=== PATIENT | female | born 1955 | race Caucasian/White ===

== ENCOUNTER 2017-02-06 09:12 | Inpatient (IN) | payer MEDICAID, MEDICARE ==
[2017-02-06 09:36] VITALS: BMI 35.5
[2017-02-06 10:15] LABS: ADD MANUAL DIFF? NO
[2017-02-06 10:22] LABS: BASO # 0.02 K/mm3 (0.0-2.0); BASO % 0.1 % (0.0-3.0); EOS # 0.1 (0.0-0.7); EOS % 0.6 % (1.5-5.0); GRAN % 61.8 % (50.0-68.0); HEMATOCRIT 36.7 % (36.0-48.0); LYMPH # 3.5 (1.2-3.4); LYMPH % 25.3 % (22.0-35.0); MEAN CELL VOLUME 72.1 fL (80.0-105.0); MEAN CORPUSCULAR HEMOGLOBIN 24.6 pg (25.0-35.0); MEAN CORPUSCULAR HGB CONC 34.1 g/dl (31.0-37.0); MONO # 1.7 (0.1-0.6); MONO % 12.2 % (1.0-6.0); PLATELET COUNT 196 10^3/uL (120.0-450.0); RED CELL DISTRIBUTION WIDTH 15.2 % (11.5-14.5); WHITE BLOOD COUNT 13.9 10^3/ul (4.5-11.0)
--- NOTE | 2017-02-06 10:26 | ED PDOC ---
Arrival/HPI - General Chief Complaint: Psychiatric Evaluation Time Seen by Provider: 02/06/17 09:24 Historian: Patient - History of Present Illness Narrative History of Present Illness (Text): 02/06/17 10:42 61 year old female whose past medical history includes schizophrenia presents to the emergency department after aggressive behavior at [facility]. Patient calm and cooperative on arrival. Denies suicidal ideation or homicidal ideation. Denies auditory hallucinations. Time/Duration: Prior to Arrival Symptom Onset: Sudden Symptom Course: Improving Associated Symptoms (Text): None Past Medical History - Provider Review Nursing Documentation Reviewed: Yes - Cardiac Hx Cardiac Disorders: Yes Hx Hypertension: Yes - Pulmonary Hx Respiratory Disorders: No - Neurological Hx Neurological Disorder: No - HEENT Hx HEENT Disorder: No - Renal Hx Renal Disorder: No - Endocrine/Metabolic Hx Endocrine Disorders: Yes Hx Hypothyroidism: Yes - Hematological/Oncological Hx Blood Disorders: No - Integumentary Hx Dermatological Disorder: No - Musculoskeletal/Rheumatological Hx Musculoskeletal Disorders: No - Gastrointestinal Hx Gastrointestinal Disorders: Yes Hx Gastroesophageal Reflux: Yes - Genitourinary/Gynecological Hx Genitourinary Disorders: No - Psychiatric Hx Psychophysiologic Disorder: Yes Hx Anxiety: Yes Hx Schizophrenia: Yes Hx Substance Use: No (denies current) - Surgical History Hx Section: Yes Family/Social History - Physician Review Nursing Documentation Reviewed: Yes Family/Social History: Unknown Family HX Smoking Status: Current Some Days Smoker Hx Alcohol Use: No (denies current) Hx Substance Use: No (denies current) Allergies/Home Meds Allergies/Adverse Reactions: Allergies No Known Allergies Allergy (Verified 02/06/17 13:55) Home Medications: Home Meds Medication Instructions Recorded Confirmed Divalproex [Depakote DR(*BID*)] 3 tab PO HS 02/06/17 02/06/17 Levothyroxine [Synthroid] 75 mcg PO DAILY 02/06/17 02/06/17 Sennosides [Senna Lax] 1 tab PO BID 02/06/17 02/06/17 amLODIPine [Norvasc] 10 mg PO DAILY 02/06/17 02/06/17 Review of Systems - Physician Review All systems were reviewed & negative as marked: Yes - Review of Systems Constitutional: Normal Respiratory: absent: SOB Gastrointestinal: absent: Abdominal Pain Genitourinary Female: Normal. absent: Dysuria, Frequency, Hematuria Neurological: absent: Headache Psychiatric: Other (No auditory hallucinations). absent: Suicidal Ideation Physical Exam Vital Signs Reviewed: Yes Vital Signs Temp Pulse Resp BP Pulse Ox 02/06/17 12:23 97 H 15 146/72 97 02/06/17 09:22 98.2 F 88 15 138/81 Temperature: Afebrile Blood Pressure: Normal Pulse: Regular Respiratory Rate: Normal Appearance: Positive for: Well-Appearing, Non-Toxic, Comfortable Pain Distress: None Mental Status: Positive for: Alert and Oriented X 3 - Systems Exam Head: Present: Atraumatic, Normocephalic Pupils: Present: PERRL Extroacular Muscles: Present: EOMI Conjunctiva: Present: Normal Mouth: Present: Moist Mucous Membranes Pharnyx: Present: Normal. No: ERYTHEMA, EXUDATE Neck: Present: Normal Range of Motion Respiratory/Chest: Present: Clear to Auscultation, Good Air Exchange. No: Respiratory Distress, Accessory Muscle Use Cardiovascular: Present: Regular Rate and Rhythm, Normal S1, S2. No: Murmurs Abdomen: Present: Normal Bowel Sounds. No: Tenderness, Distention, Peritoneal Signs Back: Present: Normal Inspection Upper Extremity: Present: Normal Inspection. No: Cyanosis, Edema Lower Extremity: Present: Normal Inspection. No: Edema Neurological: Present: GCS=15, CN II-XII Intact, Speech Normal Skin: Present: Warm, Dry, Normal Color. No: Rashes Psychiatric: Present: Alert, Oriented x 3, Normal Insight, Normal Concentration Medical Decision Making ED Course and Treatment: Impression: 61 year old female whose past medical history includes schizophrenia presents to the emergency department after aggressive behavior at [facility]. Differential Diagnosis included but are not limited to: Aggressive Behavior r/ o Schizophrenia Plan: -- Labs -- Medical clearance -- Reassess and disposition Progress Notes: Chest X-ray Auth Specialist: Ramírez Snyder MD IMPRESSION: No active disease Case discussed with Dr. Forde, states if workup is negative, medically clear for admission. 02/06/17 11:48 Labs reviewed. Urinalysis negative. CXR negative. Patient medically clear for psych admission - Lab Interpretations Lab Results: 02/06/17 10:14 02/06/17 10:14 Lab Results 02/06/17 10:30: Urine Color Yellow, Urine Appearance Sl cloudy, Urine pH 7.5, Ur Specific [place] 1.020, Urine Protein 30 H, Urine Glucose (UA) Negative, Urine Ketones Trace H, Urine Blood Negative, Urine Nitrate Negative, Urine Bilirubin Negative, Urine Urobilinogen 1.0 H, Ur Leukocyte Esterase Small H, Urine RBC 0 - 2, Urine WBC 1 - 3, Ur Epithelial Cells 6 - 8, Urine Bacteria Few , Hyaline Casts 2 - 5 02/06/17 10:14: Alcohol, Quantitative < 10 02/06/17 10:14: Salicylates < 1 L, Acetaminophen < 10.0 L 02/06/17 10:14: Sodium 138, Potassium 4.2, Chloride 103, Carbon Dioxide 27, Anion Gap 12, BUN 14, Creatinine 0.5, Est GFR ( Amer) > 60, Est GFR (Non- Af Amer) > 60, Random Glucose 83, Calcium 10.2, Total Bilirubin 0.4, AST 20, ALT 29, Alkaline Phosphatase 76, Total Creatine Kinase 99, Total Protein 8.1, Albumin 4.1, Globulin 4.0, Albumin/Globulin Ratio 1.0 L 02/06/17 10:14: WBC 13.9 H, RBC 5.09, Hgb 12.5, Hct 36.7, MCV 72.1 L, MCH 24.6 L , MCHC 34.1, RDW 15.2 H, Plt Count 196, MPV 10.0, Gran % 61.8, Lymph % (Auto) 25.3, [place] % (Auto) 12.2 H, Eos % (Auto) 0.6 L, Baso % (Auto) 0.1, Gran # 8.60 H , Lymph # 3.5 H, [place] # 1.7 H, Eos # 0.1, Baso # 0.02 02/06/17 09:38: Urine Opiates Screen Negative, Urine Methadone Screen Negative, Ur Barbiturates Screen Negative, Ur Phencyclidine Scrn Negative, Ur Amphetamines Screen Negative, U Benzodiazepines Scrn Negative, U Oth Cocaine Metabols Negative, U Cannabinoids Screen Negative Interpretation: No clinic. lab abnormalty - RAD Interpretation Radiology Orders: 02/06/17 09:53 CHEST PORTABLE [RAD] Stat Shrimp Peeling Machine Tender: Radiologist - EKG Interpretation EKG Interpretation (Text): EKG shows NSR at 99 BPM with LAFB, otherwise normal. Interpreted by me.. Interpreted by ED Physician: Yes Type: 12 lead EKG - Medication Orders Current Medication Orders: Acetaminophen (Tylenol 325mg Tab) 650 mg PO Q6H PRN PRN Reason: Fever >100.4 F Al Hydrox/Mg Hydrox/Simethicone (Maalox Plus 30 Ml) 30 ml PO DAILY PRN PRN Reason: Indigestion / Heartburn Amlodipine Besylate (Norvasc) 10 mg PO DAILY PHYLICIA Divalproex Sodium (Depakote Er(Once Daily)) 750 mg PO HS PHYLICIA Levothyroxine Sodium (Synthroid) 75 mcg PO ACB PHYLICIA Magnesium Hydroxide (Milk Of Magnesia) 30 ml PO DAILY PRN PRN Reason: Constipation Nicotine (Nicoderm Cq) 1 patch TD DAILY [facility] Last Admin: 02/06/17 15:39 Dose: Not Given Non-Admin Reason: Patient Refused Risperidone (Risperdal Tab) 1 mg PO BID PHYLICIA PRN Reason: Protocol Senna/Docusate Sodium (Senokot S 50 Mg-8.6 Mg) 1 tab PO BID [facility] Last Admin: 02/06/17 16:11 Dose: 1 tab Zaleplon (Sonata) 5 mg PO HS PRN PRN Reason: Insomnia Ziprasidone (Geodon Cap) 20 mg PO Q8H PRN; Protocol PRN Reason: Anxiety Ziprasidone (Geodon Inj) 20 mg IM Q8H PRN; Protocol PRN Reason: Agitation - Scribe Statement The provider has reviewed the documentation as recorded by the Rodger Jones Provider Scribe Attestation: All medical record entries made by the Marinoibfelipe were at my direction and personally dictated by me. I have reviewed the chart and agree that the record accurately reflects my personal performance of the history, physical exam, medical decision making, and the department course for this patient. I have also personally directed, reviewed, and agree with the discharge instructions and disposition. Disposition/Present on Arrival - Present on Arrival Any Indicators Present on Arrival: No History of DVT/PE: No History of Uncontrolled Diabetes: No Urinary Catheter: No History of Decub. Ulcer: No History Surgical Site Infection Following: None - Disposition Have Diagnosis and Disposition been Completed?: Yes Diagnosis: Schizophrenia Disposition: HOSPITALIZED Disposition Time: 13:20 Patient Plan: Admission Condition: FAIR
[2017-02-06 10:30] LABS: ALKALINE PHOSPHATASE 76 U/L (38-133); ALT/SGPT 29 U/L (7-56); AST/SGOT 20 U/L (15-39); BILIRUBIN,TOTAL 0.4 mg/dL (0.2-1.3); BLOOD UREA NITROGEN 14 mg/dL (7-21); CALCIUM 10.2 mg/dL (8.4-10.5); CARBON DIOXIDE 27 mmol/L (21-33); CHLORIDE 103 mmol/L (95-110); GFR AFRICAN-AMERICAN > 60; GLUCOSE,RANDOM 83 mg/dL (70-110); POTASSIUM 4.2 mmol/L (3.6-5.0); SODIUM 138 mmol/L (132-148); TOTAL PROTEIN 8.1 g/dL (5.8-8.3)
--- NOTE | 2017-02-06 10:43 | RAD ---
HISTORY: psych COMPARISON: No prior. FINDINGS: LUNGS: No active pulmonary disease. PLEURA: No significant pleural effusion identified, no pneumothorax apparent. CARDIOVASCULAR: Normal. OSSEOUS STRUCTURES: No significant abnormalities. VISUALIZED UPPER ABDOMEN: Normal. OTHER FINDINGS: None. IMPRESSION: No active disease.
[2017-02-06 11:00] LABS: PH,URINE 7.5 (4.7-8.0); URINE BILIRUBIN NEGATIVE (NEGATIVE); URINE BLOOD NEGATIVE (NEGATIVE); URINE GLUCOSE (UA) NEGATIVE (NEGATIVE); URINE KETONE TRACE mg/dL (NEGATIVE); URINE LEUKOCYTE ESTERASE SMALL Leu/uL (NEGATIVE); URINE PROTEIN 30 mg/dL (<30 mg/dL)
[2017-02-06 11:01] LABS: URINE APPEARANCE SL CLOUDY (CLEAR); URINE COLOR YELLOW (YELLOW)
[2017-02-06 11:12] LABS: URINE RBC 0 - 2 /hpf (0-2)
[2017-02-06 11:13] LABS: URINE BACTERIA FEW (NEG)
[2017-02-06 12:30] VITALS: O2SAT 97
[2017-02-06] MEDS ORDERED: Alum-Mag Hydrox-Simethicone Susp (30 mL) PO PRN (14:03)
[2017-02-06] MEDS ORDERED: Magnesium Hydroxide Susp 30 ml UD PO PRN (14:03)
[2017-02-06] MEDS: Docusate-Senna 50 mg-8.6 mg Tab PO SCH (16:11)
--- NOTE | 2017-02-06 18:25 | CARD ---
APPROVED REPORT EKG Measurement Heart [id number] <Conclusion> Normal sinus rhythm Left anterior fascicular block PRWP NSSTW changes
[2017-02-06] MEDS: Divalproex 250 mg ER (ONCE DAILY formulation) PO SCH (21:51)
[2017-02-07] MEDS: Levothyroxine 75 MCG TAB PO SCH (06:34)
[2017-02-07 08:51] LABS: CHOLESTEROL 205 mg/dL (130-200); GLUCOSE,FASTING 90 mg/dL (65-110)
[2017-02-07] MEDS: Docusate-Senna 50 mg-8.6 mg Tab PO SCH ×2 (09:03→17:29)
[2017-02-07 09:08] LABS: FREE T4 1.12 ng/dL (0.78-2.19)
[2017-02-07 09:22] LABS: THYROID STIMULATING HORMONE 3.01 mIU/mL (0.46-4.68)
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
[2017-02-07] MEDS: Divalproex 250 mg ER (ONCE DAILY formulation) PO SCH (21:20)
[2017-02-08] MEDS: Levothyroxine 75 MCG TAB PO SCH (06:54)
[2017-02-08] MEDS: Docusate-Senna 50 mg-8.6 mg Tab PO SCH ×2 (08:43→17:22)
[2017-02-08 10:30] LABS: HEMATOCRIT 36.7 % (36.0-48.0); MEAN CELL VOLUME 72.7 fL (80.0-105.0); MEAN CORPUSCULAR HEMOGLOBIN 24.2 pg (25.0-35.0); MEAN CORPUSCULAR HGB CONC 33.2 g/dl (31.0-37.0); MEAN PLATELET VOLUME 9.9 fl (7.0-11.0); RED CELL DISTRIBUTION WIDTH 15.3 % (11.5-14.5)
--- NOTE | 2017-02-08 11:51 | CP.PCM.HP ---
History of Present Illness - History of Present Illness History of Present Illness: CC: Patient was transferred from detention for evaluation of disorganized, paranoid and aggressive behavior. HPI: 61 year old female with history of HTN, dyslipidemia, obesity, hypothyroidism and tobacco use who got admitted for evaluation of disorganized, paranoid and aggressive behavior. Patient appears calm at present and denies any chest pain, fever, headache, abdominal pain, constipation, diarrhea or urinary problems. Reports that she has mild cough with scant whitish sputum and runny nose. PMH: HTN, dyslipidemia, obesity, hypothyroidism and tobacco use ALLERGY: NKDA MEDS: Synthroid, depakote and norvasc FAMILY HISTORY: Unknown. SOCIAL HISTORY: Patient lives in [facility]. She is a and has 2 daughters. Smoke 5-6 cig/ day. Does not drink alcohol or use drugs. Present on Admission - Present on Admission Any Indicators Present on Admission: No History of DVT/PE: No History of Uncontrolled Diabetes: No Urinary Catheter: No Decubitus Ulcer Present: No Review of Systems - Constitutional Constitutional: absent: Anorexia, Chills, Daytime Sleepiness, Excessive Sweating , Fatigue, Fever, Frequent Falls, Headache, Increased Appetite, Lethargy, Malaise, Night Sweats, Snoring, Sleep Apnea, Weight Gain, Weight Loss, Weakness - EENT Eyes: absent: Blind Spots, Blurred Vision, Change in Vision, Decreased Night Vision, Diplopia, Discharge, Irritation, Itchy Eyes, Loss of Peripheral Vision, Photophobia, Sees Flashes, Spots in Vision, Tunnel Vision, Other Visual Disturbances Ears: absent: Decreased Hearing, Ear Discharge, Ear Pain, Tinnitus, Abnormal Hearing, Disequilibrium, Dizziness Nose/Mouth/Throat: absent: Epistaxis, Nasal Congestion, Nasal Discharge, Nasal Obstruction, Nasal Trauma, Sinus Pressure, Bleeding Gums, Change in Voice, Dental Pain, Dry Mouth, Lip Swelling, Mouth Lesions, Mouth Pain, Odynophagia, Sore Throat - Breasts Breasts: absent: Change in Shape, Mass, Pain, Nipple Discharge, Nipple Inversion - Cardiovascular Cardiovascular: absent: Acrocyanosis, Chest Pain, Chest Pain at Rest, Chest Pain with Activity, Claudication, Diaphoresis, Dyspnea, Dyspnea on Exertion, Edema, Irregular Heart Rhythm, Pain Radiating to Arm/Neck/Jaw, Leg Edema, Leg Ulcers, Lightheadedness, Orthopnea, Palpitations, Paroxysmal Nocturnal Dyspnea, Pedal Edema, Rapid Heart Rate, Slow Heart Rate, Syncope - Respiratory Respiratory: Cough. absent: Dyspnea, Hemoptysis, Dyspnea on Exertion, Wheezing , Snoring, Stridor, Pain on Inspiration, Chest Congestion, Excessive Mucous Production, Change in Mucous Color, Pain with Coughing - Gastrointestinal Gastrointestinal: absent: Abdominal Pain, Belching, Bloating, Change in Bowel Habits, Change in Stool Character, Constipation, Cramping, Diarrhea, Dyspepsia, Dysphagia, Early Satiety, Excessive Flatus, Heartburn, Hematemesis, Hematochezia , Loose Stools, Nausea, Odynophagia - Genitourinary Genitourinary: absent: Change in Urinary Stream, Difficulty Urinating, Dysuria, Flank Pain, Hematuria, Pyuria, Nocturia, Urinary Frequency, Urinary Hesitance, Urinary Urgency, Voiding Freq/Small Amts, Freq UTI - Reproductive: Female Reproductive:Female: Amenorrhea - Musculoskeletal Musculoskeletal: absent: Abnormal Gait, Arthralgias, Atrophy, Back Pain, Deformity, Joint Swelling, Limited Range of Motion, Muscle Cramps, Muscle Weakness, Myalgias, Neck Pain, Radiating Pain into Limb - Integumentary Integumentary: absent: Alopecia, Bleeding Lesions, Change in Hair, Change in Nails, Change in Pigmentation, Dry Skin, Erythema, Furuncle, Hirsutism, Lesions , New Lesions, Pruritus, Rash, Skin Pain, Skin Ulcer, Striae - Neurological Neurological: absent: Abnormal Gait, Abnormal Hearing, Abnormal Movements, Convulsions, Disequilibrium, Dizziness, Headaches, Lack of Coordination, Sensory Deficit, Syncope, Tingling, Tremor - Psychiatric Psychiatric: absent: Abnormal Sleep Pattern, Anhedonia, Anxiety, Auditory Hallucinations, Change in Libido, Confusion, Depression, Hopelessness, Irritability, Memory Loss - Endocrine Endocrine: absent: Change in Body Appearance, Change in [place], Cold Intolorance , Deepening of Voice, Heat Intolorance, Increase in Ring/Shoe/Hat Size, Palpitations, Polydipsia - Hematologic/Lymphatic Hematologic: absent: Easy Bleeding, Easy Bruising, Lymphadenopathy Past Patient History - Past Social History Smoking Status: Current Some Days Smoker Meds Allergies/Adverse Reactions: Allergies Allergy/AdvReac Type Severity Reaction Status Date / Time No Known Allergies Allergy Verified 02/06/17 13:55 Physical Exam - Constitutional Appears: Well, Non-toxic, No Acute Distress - Head Exam Head Exam: ATRAUMATIC, NORMAL INSPECTION, NORMOCEPHALIC - Eye Exam Eye Exam: EOMI, Normal appearance Pupil Exam: PERRL - ENT Exam ENT Exam: Mucous Membranes Moist, Normal Exam - Neck Exam Neck exam: Positive for: Normal Inspection - Respiratory Exam Respiratory Exam: Clear to Auscultation Bilateral, NORMAL BREATHING PATTERN. absent: Prolonged Expiratory Phase - Cardiovascular Exam Cardiovascular Exam: REGULAR RHYTHM, +S1, +S2 - GI/Abdominal Exam GI & Abdominal Exam: Distended, Normal Bowel Sounds, Soft. absent: Tenderness - Rectal Exam Rectal Exam: Deferred - Extremities Exam Extremities exam: Positive for: full ROM, normal capillary refill, normal inspection. Negative for: pedal edema - Back Exam Back exam: FULL ROM, NORMAL INSPECTION. absent: CVA tenderness (L), CVA tenderness (R), paraspinal tenderness, tenderness, vertebral tenderness - Neurological Exam Neurological exam: Alert, CN II-XII Intact, Normal Gait, Oriented x3, Reflexes Normal - Psychiatric Exam Psychiatric exam: Normal Affect, Normal Mood - Skin Skin Exam: Dry, Intact, Normal Color, Warm Results - Vital Signs Recent Vital Signs: Last Vital Signs Temp 97.7 F 02/08/17 07:40 Pulse 88 02/08/17 07:40 Resp 20 02/08/17 07:40 BP 135/86 02/08/17 08:43 Pulse Ox 97 02/06/17 12:23 - Labs Result Diagrams: 02/08/17 10:23 02/06/17 10:14 Labs: Laboratory Results - last 24 hr 02/07/17 02/07/17 02/07/17 08:30 08:30 08:30 Fasting Glucose 90 Triglycerides 66 Cholesterol 205 H LDL Cholesterol Direct 92 HDL Cholesterol 72 H Free T4 1.12 TSH 3rd Generation 3.01 Valproic Acid 22 L RPR 02/07/17 08:30 Fasting Glucose Triglycerides Cholesterol LDL Cholesterol Direct HDL Cholesterol Free T4 TSH 3rd Generation Valproic Acid RPR Nonreactive Assessment & Plan - Assessment and Plan (Free Text) Plan: 61 year old female with history of HTN, dyslipidemia, obesity, hypothyroidism and tobacco use who got admitted for evaluation of disorganized, paranoid and aggressive behavior. 1-Disorganized, paranoid and aggressive behavior: Manage as per psych. 2-HTN: Stable. Continue norvasc. Heart healthy diet with low salt. 3-Dyslipidemia: stable. Life style modification advised. 4-Leukocytosis: Patient appears non toxic and afebrile. Repeat CBC is normal. 5-Viral URI: Supportive. Tylenol prn. 6-Hypothyroidism: Continue synthroid. TFTs are normal. 7-Tobacco use: Nicotine patch. Counselling provided. 8-Abnormal urinalysis: Patient is asymptomatic. No indication to give antibiotics. Dispo: Upon discharge patient will follow up with Dr Rios as an outpatient.
--- NOTE | 2017-02-08 14:02 | PCM.PYCHPN ---
Psychiatric Progress Note - Psychiatric Progress Note Patient seen today, length of contact: 30 minutes Patient Chief Complaint: "i'm doing well thank you" Problems Identified/Issues Discussed: Suicide/ homicide prevention, past psychiatric h/o, current psychiatric symptoms , medical problems, risk/benefits and alternatives of medications, medications compliance, coping strategies, substance abuse h/o, relapse prevention, importance of follow up with psychiatrist and therapist, discharge plan. Medical Problems: dyslipidemia, obesity, hypothyroidism, URI now Diagnostic Results: 02/08/17 10:23 02/06/17 10:14 Lab Results 02/08/17 10:23: WBC 9.0 D, RBC 5.05, Hgb 12.2, Hct 36.7, MCV 72.7 L, MCH 24.2 L , MCHC 33.2, RDW 15.3 H, Plt Count 185, MPV 9.9 02/07/17 08:30: RPR Nonreactive 02/07/17 08:30: Valproic Acid 22 L 02/07/17 08:30: Fasting Glucose 90, Triglycerides 66, Cholesterol 205 H, LDL Cholesterol Direct 92, HDL Cholesterol 72 H 02/07/17 08:30: Free T4 1.12, TSH 3rd Generation 3.01 02/06/17 10:30: Urine Color Yellow, Urine Appearance Sl cloudy, Urine pH 7.5, Ur Specific [place] 1.020, Urine Protein 30 H, Urine Glucose (UA) Negative, Urine Ketones Trace H, Urine Blood Negative, Urine Nitrate Negative, Urine Bilirubin Negative, Urine Urobilinogen 1.0 H, Ur Leukocyte Esterase Small H, Urine RBC 0 - 2, Urine WBC 1 - 3, Ur Epithelial Cells 6 - 8, Urine Bacteria Few , Hyaline Casts 2 - 5 02/06/17 10:14: Alcohol, Quantitative < 10 02/06/17 10:14: Salicylates < 1 L, Acetaminophen < 10.0 L 02/06/17 10:14: Sodium 138, Potassium 4.2, Chloride 103, Carbon Dioxide 27, Anion Gap 12, BUN 14, Creatinine 0.5, Est GFR ( Amer) > 60, Est GFR (Non- Af Amer) > 60, Random Glucose 83, Calcium 10.2, Total Bilirubin 0.4, AST 20, ALT 29, Alkaline Phosphatase 76, Total Creatine Kinase 99, Total Protein 8.1, Albumin 4.1, Globulin 4.0, Albumin/Globulin Ratio 1.0 L 02/06/17 10:14: WBC 13.9 H, RBC 5.09, Hgb 12.5, Hct 36.7, MCV 72.1 L, MCH 24.6 L , MCHC 34.1, RDW 15.2 H, Plt Count 196, MPV 10.0, Gran % 61.8, Lymph % (Auto) 25.3, [place] % (Auto) 12.2 H, Eos % (Auto) 0.6 L, Baso % (Auto) 0.1, Gran # 8.60 H , Lymph # 3.5 H, [place] # 1.7 H, Eos # 0.1, Baso # 0.02 02/06/17 09:38: Urine Opiates Screen Negative, Urine Methadone Screen Negative, Ur Barbiturates Screen Negative, Ur Phencyclidine Scrn Negative, Ur Amphetamines Screen Negative, U Benzodiazepines Scrn Negative, U Oth Cocaine Metabols Negative, U Cannabinoids Screen Negative Vital Signs Temp Pulse Resp BP Pulse Ox 02/08/17 08:43 135/86 02/08/17 07:40 97.7 F 88 20 135/86 02/07/17 16:23 94 H 138/82 02/07/17 09:02 131/86 02/07/17 07:36 98.0 F 90 20 131/86 02/06/17 14:05 18 02/06/17 13:58 97.6 F 86 18 145/84 02/06/17 12:23 97 H 15 146/72 97 02/06/17 09:22 98.2 F 88 15 138/81 DSM 5 Symptoms Update: shortly patient is 61 years old -[place] female, long debilitating history of mental illness, schizophrenia spectrum disorder, multiple admissions to the psychiatric inpatient unit through her life, patient was transferred from the longterm for evaluation of agitated bizarre, psychotic behavior, patient broke the door, patient needs further evaluation and stabilization, medications titration. Patient was seen at the tv area, patient presented to have acceptable personal hygiene, poor dental hygiene, patient does not have frontal teeth, overall was calm, superficially corporative, with ADLs, childlike demeanor. pt seems having residual psychotic symptoms, pt has some cognitive limitations, pt is not aware why she was admitted to the hospital and does not remember being agitated in the NH. as per staff, pt is socially appropriate, wondering at the unit, needs observation and redirections. pt is compliant with meds and unit rules and regulations. pt seems to be internally preoccupied, poverty of speech and thoughts, concrete thought process, thought blocking. Patient told her medications well, no side effects observed or reported, aims 0 , no EPS. Impression: Residual schizophrenia, acute exacerbation. Medication Change: Yes (Risperdal was increased yesterday) Medical Record Reviewed: Yes Consults ordered or reviewed: medical consultation appreciated, WBC cells elevated most likely due to upper resptory tract infection. Mental Status Examination - Cognitive Function Orientation: Person, Place Memory: Impaired (chronic) Attention: Poor Concentration: Poor Association: Loose Fund of Knowledge: Poor - Mood Mood: Neutral - Affect Affect: Other (inappropriately smiling) - Formal Thought Process Formal Thought Process: Delusions, Paranoia, Loosening of associations, Circumstantial - Suicidal Ideation Suicidal Ideation: No - Homicidal Ideation Homicidal Ideation: No Goal/Treatment Plan - Goal/Treatment Plan Need for Continued Stay: Remain at risks for inpatient hospitalization, Severe depression anxiety, Discharge may exacerbated symptoms, Severe functional impairment Progress Toward Problem(s) and Goals/Treatment Plan: milieu, structure, supportive therapy Divalproex 750 mg at the nighttime for mood stabilization Depakote level was low ,consider to increase Depakote in the future Levothyroxine [Synthroid] 75 mcg PO DAILY will be resumed Sennosides [Senna Lax] 1 tab PO BID resumed amLODIPine [Norvasc] 10 mg PO DAILY resumed Risperdal 1 mg at the morning time and 2 mg at the nighttime for psychotic symptoms and mood stabilization Medical team evaluation 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
[2017-02-08] MEDS: Divalproex 250 mg ER (ONCE DAILY formulation) PO SCH (21:15)
[2017-02-09] MEDS: Levothyroxine 75 MCG TAB PO SCH (06:40)
[2017-02-09] MEDS: Docusate-Senna 50 mg-8.6 mg Tab PO SCH ×2 (08:40→16:06)
--- NOTE | 2017-02-09 12:45 | PCM.PYCHPN ---
Psychiatric Progress Note - Psychiatric Progress Note Patient seen today, length of contact: 30 minutes Patient Chief Complaint: "[facility]" Problems Identified/Issues Discussed: Suicide/ homicide prevention, past psychiatric h/o, current psychiatric symptoms , medical problems, risk/benefits and alternatives of medications, medications compliance, coping strategies, substance abuse h/o, relapse prevention, importance of follow up with psychiatrist and therapist, discharge plan. Medical Problems: dyslipidemia, obesity, hypothyroidism, URI now Diagnostic Results: 02/08/17 10:23 02/06/17 10:14 Lab Results 02/08/17 10:23: WBC 9.0 D, RBC 5.05, Hgb 12.2, Hct 36.7, MCV 72.7 L, MCH 24.2 L , MCHC 33.2, RDW 15.3 H, Plt Count 185, MPV 9.9 02/07/17 08:30: RPR Nonreactive 02/07/17 08:30: Valproic Acid 22 L 02/07/17 08:30: Fasting Glucose 90, Triglycerides 66, Cholesterol 205 H, LDL Cholesterol Direct 92, HDL Cholesterol 72 H 02/07/17 08:30: Free T4 1.12, TSH 3rd Generation 3.01 02/06/17 10:30: Urine Color Yellow, Urine Appearance Sl cloudy, Urine pH 7.5, Ur Specific [place] 1.020, Urine Protein 30 H, Urine Glucose (UA) Negative, Urine Ketones Trace H, Urine Blood Negative, Urine Nitrate Negative, Urine Bilirubin Negative, Urine Urobilinogen 1.0 H, Ur Leukocyte Esterase Small H, Urine RBC 0 - 2, Urine WBC 1 - 3, Ur Epithelial Cells 6 - 8, Urine Bacteria Few , Hyaline Casts 2 - 5 02/06/17 10:14: Alcohol, Quantitative < 10 02/06/17 10:14: Salicylates < 1 L, Acetaminophen < 10.0 L 02/06/17 10:14: Sodium 138, Potassium 4.2, Chloride 103, Carbon Dioxide 27, Anion Gap 12, BUN 14, Creatinine 0.5, Est GFR ( Amer) > 60, Est GFR (Non- Af Amer) > 60, Random Glucose 83, Calcium 10.2, Total Bilirubin 0.4, AST 20, ALT 29, Alkaline Phosphatase 76, Total Creatine Kinase 99, Total Protein 8.1, Albumin 4.1, Globulin 4.0, Albumin/Globulin Ratio 1.0 L 02/06/17 10:14: WBC 13.9 H, RBC 5.09, Hgb 12.5, Hct 36.7, MCV 72.1 L, MCH 24.6 L , MCHC 34.1, RDW 15.2 H, Plt Count 196, MPV 10.0, Gran % 61.8, Lymph % (Auto) 25.3, [place] % (Auto) 12.2 H, Eos % (Auto) 0.6 L, Baso % (Auto) 0.1, Gran # 8.60 H , Lymph # 3.5 H, [place] # 1.7 H, Eos # 0.1, Baso # 0.02 02/06/17 09:38: Urine Opiates Screen Negative, Urine Methadone Screen Negative, Ur Barbiturates Screen Negative, Ur Phencyclidine Scrn Negative, Ur Amphetamines Screen Negative, U Benzodiazepines Scrn Negative, U Oth Cocaine Metabols Negative, U Cannabinoids Screen Negative Vital Signs Temp Pulse Resp BP Pulse Ox 02/08/17 08:43 135/86 02/08/17 07:40 97.7 F 88 20 135/86 02/07/17 16:23 94 H 138/82 02/07/17 09:02 131/86 02/07/17 07:36 98.0 F 90 20 131/86 02/06/17 14:05 18 02/06/17 13:58 97.6 F 86 18 145/84 02/06/17 12:23 97 H 15 146/72 97 02/06/17 09:22 98.2 F 88 15 138/81 Temp Pulse Resp BP Pulse Ox 97.8 F 89 17 110/62 97 02/09/17 06:36 02/09/17 06:36 02/09/17 06:36 02/09/17 08:39 02/06/17 12:23 DSM 5 Symptoms Update: shortly patient is 61 years old -[place] female, long debilitating history of mental illness, schizophrenia spectrum disorder, multiple admissions to the psychiatric inpatient unit through her life, patient was transferred from the [facility] for evaluation of agitated bizarre, psychotic behavior, patient broke the door, patient needs further evaluation and stabilization, medications titration. Patient was seen at the tv area, patient presented to have acceptable personal hygiene, poor dental hygiene, patient does not have frontal teeth, overall was calm, superficially corporative, with ADLs, childlike demeanor. pt seems having residual psychotic symptoms, pt has some cognitive limitations, pt is not aware why she was admitted to the hospital "I want to go back to the penitentiary". as per staff, pt is socially appropriate, wondering at the unit, needs observation and redirections. pt is compliant with meds and unit rules and regulations. Patient told her medications well, no side effects observed or reported, aims 0 , no EPS. Impression: Residual schizophrenia, acute exacerbation. Medication Change: No Medical Record Reviewed: Yes Consults ordered or reviewed: medical consultation appreciated, WBC cells elevated most likely due to upper resptory tract infection. Mental Status Examination - Cognitive Function Orientation: Person, Place Memory: Impaired (chronic) Attention: Poor Concentration: Poor Association: Loose Fund of Knowledge: Poor - Mood Mood: Neutral - Affect Affect: Other (inappropriately smiling) - Formal Thought Process Formal Thought Process: Delusions, Paranoia, Loosening of associations, Circumstantial - Suicidal Ideation Suicidal Ideation: No - Homicidal Ideation Homicidal Ideation: No Goal/Treatment Plan - Goal/Treatment Plan Need for Continued Stay: Remain at risks for inpatient hospitalization, Severe depression anxiety, Discharge may exacerbated symptoms, Severe functional impairment Progress Toward Problem(s) and Goals/Treatment Plan: milieu, structure, supportive therapy Divalproex 750 mg at the nighttime for mood stabilization Depakote level was low ,consider to increase Depakote in the future Depakote level for tomorrow February 10 Levothyroxine [Synthroid] 75 mcg PO DAILY will be resumed Sennosides [Senna Lax] 1 tab PO BID resumed amLODIPine [Norvasc] 10 mg PO DAILY resumed Risperdal 1 mg at the morning time and 2 mg at the nighttime for psychotic symptoms and mood stabilization Medical team evaluation Collateral information obtained from the 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
[2017-02-09] MEDS: Divalproex 250 mg ER (ONCE DAILY formulation) PO SCH (22:16)
[2017-02-10] MEDS: Docusate-Senna 50 mg-8.6 mg Tab PO SCH ×2 (09:32→17:17)
[2017-02-10] MEDS: Levothyroxine 75 MCG TAB PO SCH (09:32)
--- NOTE | 2017-02-10 16:27 | PCM.PYCHPN ---
Psychiatric Progress Note - Psychiatric Progress Note Patient seen today, length of contact: 30 minutes Patient Chief Complaint: "I [facility] to go back to the penitentiary" Problems Identified/Issues Discussed: Suicide/ homicide prevention, past psychiatric h/o, current psychiatric symptoms , medical problems, risk/benefits and alternatives of medications, medications compliance, coping strategies, substance abuse h/o, relapse prevention, importance of follow up with psychiatrist and therapist, discharge plan. Medical Problems: dyslipidemia, obesity, hypothyroidism, URI now Diagnostic Results: 02/08/17 10:23 02/06/17 10:14 Lab Results 02/08/17 10:23: WBC 9.0 D, RBC 5.05, Hgb 12.2, Hct 36.7, MCV 72.7 L, MCH 24.2 L , MCHC 33.2, RDW 15.3 H, Plt Count 185, MPV 9.9 02/07/17 08:30: RPR Nonreactive 02/07/17 08:30: Valproic Acid 22 L 02/07/17 08:30: Fasting Glucose 90, Triglycerides 66, Cholesterol 205 H, LDL Cholesterol Direct 92, HDL Cholesterol 72 H 02/07/17 08:30: Free T4 1.12, TSH 3rd Generation 3.01 02/06/17 10:30: Urine Color Yellow, Urine Appearance Sl cloudy, Urine pH 7.5, Ur Specific [place] 1.020, Urine Protein 30 H, Urine Glucose (UA) Negative, Urine Ketones Trace H, Urine Blood Negative, Urine Nitrate Negative, Urine Bilirubin Negative, Urine Urobilinogen 1.0 H, Ur Leukocyte Esterase Small H, Urine RBC 0 - 2, Urine WBC 1 - 3, Ur Epithelial Cells 6 - 8, Urine Bacteria Few , Hyaline Casts 2 - 5 02/06/17 10:14: Alcohol, Quantitative < 10 02/06/17 10:14: Salicylates < 1 L, Acetaminophen < 10.0 L 02/06/17 10:14: Sodium 138, Potassium 4.2, Chloride 103, Carbon Dioxide 27, Anion Gap 12, BUN 14, Creatinine 0.5, Est GFR ( Amer) > 60, Est GFR (Non- Af Amer) > 60, Random Glucose 83, Calcium 10.2, Total Bilirubin 0.4, AST 20, ALT 29, Alkaline Phosphatase 76, Total Creatine Kinase 99, Total Protein 8.1, Albumin 4.1, Globulin 4.0, Albumin/Globulin Ratio 1.0 L 02/06/17 10:14: WBC 13.9 H, RBC 5.09, Hgb 12.5, Hct 36.7, MCV 72.1 L, MCH 24.6 L , MCHC 34.1, RDW 15.2 H, Plt Count 196, MPV 10.0, Gran % 61.8, Lymph % (Auto) 25.3, [place] % (Auto) 12.2 H, Eos % (Auto) 0.6 L, Baso % (Auto) 0.1, Gran # 8.60 H , Lymph # 3.5 H, [place] # 1.7 H, Eos # 0.1, Baso # 0.02 02/06/17 09:38: Urine Opiates Screen Negative, Urine Methadone Screen Negative, Ur Barbiturates Screen Negative, Ur Phencyclidine Scrn Negative, Ur Amphetamines Screen Negative, U Benzodiazepines Scrn Negative, U Oth Cocaine Metabols Negative, U Cannabinoids Screen Negative Vital Signs Temp Pulse Resp BP Pulse Ox 02/08/17 08:43 135/86 02/08/17 07:40 97.7 F 88 20 135/86 02/07/17 16:23 94 H 138/82 02/07/17 09:02 131/86 02/07/17 07:36 98.0 F 90 20 131/86 02/06/17 14:05 18 02/06/17 13:58 97.6 F 86 18 145/84 02/06/17 12:23 97 H 15 146/72 97 02/06/17 09:22 98.2 F 88 15 138/81 Temp Pulse Resp BP Pulse Ox 97.8 F 89 17 110/62 97 02/09/17 06:36 02/09/17 06:36 02/09/17 06:36 02/09/17 08:39 02/06/17 12:23 Laboratory Results - last 24 hr 02/10/17 08:00 Valproic Acid 16 L DSM 5 Symptoms Update: shortly patient is 61 years old -[place] female, long debilitating history of mental illness, schizophrenia spectrum disorder, multiple admissions to the psychiatric inpatient unit through her life, patient was transferred from the retirement for evaluation of agitated bizarre, psychotic behavior, patient broke the door, patient needs further evaluation and stabilization, medications titration. Patient was seen at the tv area, patient presented to have acceptable personal hygiene, poor dental hygiene, patient does not have frontal teeth, overall was calm, superficially corporative, with ADLs, childlike demeanor. pt seems having residual psychotic symptoms, pt has some cognitive limitations, pt is not aware why she was admitted to the hospital "I want to go back to the penitentiary". as per staff, pt is socially appropriate, wondering at the unit, needs observation and redirections. pt is compliant with meds and unit rules and regulations. Patient told her medications well, no side effects observed or reported, aims 0 , no EPS. Impression: Residual schizophrenia, acute exacerbation. Medication Change: Yes (depakote increased) Medical Record Reviewed: Yes Consults ordered or reviewed: medical consultation appreciated, WBC cells elevated most likely due to upper resptory tract infection. Mental Status Examination - Cognitive Function Orientation: Person, Place Memory: Impaired (chronic) Attention: Poor Concentration: Poor Association: Loose Fund of Knowledge: Poor - Mood Mood: Neutral - Affect Affect: Other (inappropriately smiling) - Formal Thought Process Formal Thought Process: Delusions, Paranoia, Loosening of associations, Circumstantial - Suicidal Ideation Suicidal Ideation: No - Homicidal Ideation Homicidal Ideation: No Goal/Treatment Plan - Goal/Treatment Plan Need for Continued Stay: Remain at risks for inpatient hospitalization, Severe depression anxiety, Discharge may exacerbated symptoms, Severe functional impairment Progress Toward Problem(s) and Goals/Treatment Plan: milieu, structure, supportive therapy Divalproex 1000 mg at the nighttime for mood stabilization depakote level was low 16 on February 10 Levothyroxine [Synthroid] 75 mcg PO DAILY will be resumed Sennosides [Senna Lax] 1 tab PO BID resumed amLODIPine [Norvasc] 10 mg PO DAILY resumed Risperdal 1 mg at the morning time and 2 mg at the nighttime for psychotic symptoms and mood stabilization Medical team evaluation Collateral information obtained from the family appreciated tank worker evaluation we'll monitor patient closely Estimated Date of D/C: 02/14/17 (we'll monitor closely)
[2017-02-10] MEDS: Divalproex 250 mg ER (ONCE DAILY formulation) PO SCH (21:52)
[2017-02-11 07:26] VITALS: RESP 20
[2017-02-11] MEDS: Levothyroxine 75 MCG TAB PO SCH (08:47)
[2017-02-11] MEDS: Docusate-Senna 50 mg-8.6 mg Tab PO SCH ×2 (08:47→17:31)
--- NOTE | 2017-02-11 16:08 | PCM.PYCHPN ---
Psychiatric Progress Note - Psychiatric Progress Note Patient seen today, length of contact: 30 minutes Patient Chief Complaint: "Why you want to keep me on the execution chair? You know what I am talking about?" patient is delusional, there is no execution chair in the unit. Problems Identified/Issues Discussed: Suicide/ homicide prevention, past psychiatric h/o, current psychiatric symptoms , medical problems, risk/benefits and alternatives of medications, medications compliance, coping strategies, substance abuse h/o, relapse prevention, importance of follow up with psychiatrist and therapist, discharge plan. Medical Problems: dyslipidemia, obesity, hypothyroidism, URI now Diagnostic Results: 02/08/17 10:23 02/06/17 10:14 Lab Results 02/08/17 10:23: WBC 9.0 D, RBC 5.05, Hgb 12.2, Hct 36.7, MCV 72.7 L, MCH 24.2 L , MCHC 33.2, RDW 15.3 H, Plt Count 185, MPV 9.9 02/07/17 08:30: RPR Nonreactive 02/07/17 08:30: Valproic Acid 22 L 02/07/17 08:30: Fasting Glucose 90, Triglycerides 66, Cholesterol 205 H, LDL Cholesterol Direct 92, HDL Cholesterol 72 H 02/07/17 08:30: Free T4 1.12, TSH 3rd Generation 3.01 02/06/17 10:30: Urine Color Yellow, Urine Appearance Sl cloudy, Urine pH 7.5, Ur Specific [place] 1.020, Urine Protein 30 H, Urine Glucose (UA) Negative, Urine Ketones Trace H, Urine Blood Negative, Urine Nitrate Negative, Urine Bilirubin Negative, Urine Urobilinogen 1.0 H, Ur Leukocyte Esterase Small H, Urine RBC 0 - 2, Urine WBC 1 - 3, Ur Epithelial Cells 6 - 8, Urine Bacteria Few , Hyaline Casts 2 - 5 02/06/17 10:14: Alcohol, Quantitative < 10 02/06/17 10:14: Salicylates < 1 L, Acetaminophen < 10.0 L 02/06/17 10:14: Sodium 138, Potassium 4.2, Chloride 103, Carbon Dioxide 27, Anion Gap 12, BUN 14, Creatinine 0.5, Est GFR ( Amer) > 60, Est GFR (Non- Af Amer) > 60, Random Glucose 83, Calcium 10.2, Total Bilirubin 0.4, AST 20, ALT 29, Alkaline Phosphatase 76, Total Creatine Kinase 99, Total Protein 8.1, Albumin 4.1, Globulin 4.0, Albumin/Globulin Ratio 1.0 L 02/06/17 10:14: WBC 13.9 H, RBC 5.09, Hgb 12.5, Hct 36.7, MCV 72.1 L, MCH 24.6 L , MCHC 34.1, RDW 15.2 H, Plt Count 196, MPV 10.0, Gran % 61.8, Lymph % (Auto) 25.3, [place] % (Auto) 12.2 H, Eos % (Auto) 0.6 L, Baso % (Auto) 0.1, Gran # 8.60 H , Lymph # 3.5 H, [place] # 1.7 H, Eos # 0.1, Baso # 0.02 02/06/17 09:38: Urine Opiates Screen Negative, Urine Methadone Screen Negative, Ur Barbiturates Screen Negative, Ur Phencyclidine Scrn Negative, Ur Amphetamines Screen Negative, U Benzodiazepines Scrn Negative, U Oth Cocaine Metabols Negative, U Cannabinoids Screen Negative Vital Signs Temp Pulse Resp BP Pulse Ox 02/08/17 08:43 135/86 02/08/17 07:40 97.7 F 88 20 135/86 02/07/17 16:23 94 H 138/82 02/07/17 09:02 131/86 02/07/17 07:36 98.0 F 90 20 131/86 02/06/17 14:05 18 02/06/17 13:58 97.6 F 86 18 145/84 02/06/17 12:23 97 H 15 146/72 97 02/06/17 09:22 98.2 F 88 15 138/81 Temp Pulse Resp BP Pulse Ox 97.8 F 89 17 110/62 97 02/09/17 06:36 02/09/17 06:36 02/09/17 06:36 02/09/17 08:39 02/06/17 12:23 Laboratory Results - last 24 hr 02/10/17 08:00 Valproic Acid 16 L Temp Pulse Resp BP Pulse Ox 98.2 F 81 20 121/72 97 02/11/17 07:25 02/11/17 07:25 02/11/17 07:25 02/11/17 08:46 02/06/17 12:23 DSM 5 Symptoms Update: shortly patient is 61 years old -[place] female, long debilitating history of mental illness, schizophrenia spectrum disorder, multiple admissions to the psychiatric inpatient unit through her life, patient was transferred from the correction for evaluation of agitated bizarre, psychotic behavior, patient broke the door, patient needs further evaluation and stabilization, medications titration. Patient was seen in the psychiatric social worker supervisor room, patient presented to have acceptable personal hygiene, poor dental hygiene, patient presented to be delusional, paranoid, patient asked this advertising copy writer why she keeps her on execution chair, it is delusions, there is no execution chairs in the unit. As per nursing staff patient was agitated yesterday was refusing to go to sleep. pt is compliant with meds and unit rules and regulations, but yesterday was agitated. Patient tolerated her medications well, no side effects observed or reported, aims 0, no EPS. Impression: Residual schizophrenia, acute exacerbation. Medication Change: Yes (depakote increased, riserpdal increased) Medical Record Reviewed: Yes Consults ordered or reviewed: medical consultation appreciated, WBC cells elevated most likely due to upper resptory tract infection. Mental Status Examination - Cognitive Function Orientation: Person, Place Memory: Impaired (chronic) Attention: Poor Concentration: Poor Association: Loose Fund of Knowledge: Poor - Mood Mood: Neutral - Affect Affect: Other (inappropriately smiling) - Formal Thought Process Formal Thought Process: Delusions, Paranoia, Loosening of associations, Circumstantial - Suicidal Ideation Suicidal Ideation: No - Homicidal Ideation Homicidal Ideation: No Goal/Treatment Plan - Goal/Treatment Plan Need for Continued Stay: Remain at risks for inpatient hospitalization, Severe depression anxiety, Discharge may exacerbated symptoms, Severe functional impairment Progress Toward Problem(s) and Goals/Treatment Plan: milieu, structure, supportive therapy Divalproex 1000 mg at the nighttime and 500mg po am for mood stabilization depakote level was low 16 on February 10 Levothyroxine [Synthroid] 75 mcg PO DAILY will be resumed Sennosides [Senna Lax] 1 tab PO BID resumed amLODIPine [Norvasc] 10 mg PO DAILY resumed Risperdal 2 mg at the morning time and 2 mg at the nighttime for psychotic symptoms and mood stabilization Medical team evaluation Collateral information obtained from the family appreciated waterside worker evaluation we'll monitor patient closely Estimated Date of D/C: 02/14/17 (we'll monitor closely)
[2017-02-11] MEDS: Divalproex 250 mg ER (ONCE DAILY formulation) PO SCH (21:15)
[2017-02-12] MEDS: Divalproex 500 mg ER (ONCE DAILY formulation) PO SCH (08:17)
[2017-02-12] MEDS: Docusate-Senna 50 mg-8.6 mg Tab PO SCH ×2 (08:19→16:07)
[2017-02-12] MEDS: Levothyroxine 75 MCG TAB PO SCH (08:19)
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
[2017-02-12] MEDS: Divalproex 250 mg ER (ONCE DAILY formulation) PO SCH (22:12)
[2017-02-13] MEDS: Divalproex 500 mg ER (ONCE DAILY formulation) PO SCH (08:58)
[2017-02-13] MEDS: Docusate-Senna 50 mg-8.6 mg Tab PO SCH ×2 (09:00→16:39)
[2017-02-13] MEDS: Levothyroxine 75 MCG TAB PO SCH (09:00)
--- NOTE | 2017-02-13 15:47 | PCM.PYCHPN ---
Psychiatric Progress Note - Psychiatric Progress Note Patient seen today, length of contact: 30 minutes Patient Chief Complaint: "I feel better, when I will be discharged?" Problems Identified/Issues Discussed: Suicide/ homicide prevention, past psychiatric h/o, current psychiatric symptoms , medical problems, risk/benefits and alternatives of medications, medications compliance, coping strategies, substance abuse h/o, relapse prevention, importance of follow up with psychiatrist and therapist, discharge plan. Medical Problems: dyslipidemia, obesity, hypothyroidism, URI now Diagnostic Results: 02/08/17 10:23 02/06/17 10:14 Lab Results 02/08/17 10:23: WBC 9.0 D, RBC 5.05, Hgb 12.2, Hct 36.7, MCV 72.7 L, MCH 24.2 L , MCHC 33.2, RDW 15.3 H, Plt Count 185, MPV 9.9 02/07/17 08:30: RPR Nonreactive 02/07/17 08:30: Valproic Acid 22 L 02/07/17 08:30: Fasting Glucose 90, Triglycerides 66, Cholesterol 205 H, LDL Cholesterol Direct 92, HDL Cholesterol 72 H 02/07/17 08:30: Free T4 1.12, TSH 3rd Generation 3.01 02/06/17 10:30: Urine Color Yellow, Urine Appearance Sl cloudy, Urine pH 7.5, Ur Specific [place] 1.020, Urine Protein 30 H, Urine Glucose (UA) Negative, Urine Ketones Trace H, Urine Blood Negative, Urine Nitrate Negative, Urine Bilirubin Negative, Urine Urobilinogen 1.0 H, Ur Leukocyte Esterase Small H, Urine RBC 0 - 2, Urine WBC 1 - 3, Ur Epithelial Cells 6 - 8, Urine Bacteria Few , Hyaline Casts 2 - 5 02/06/17 10:14: Alcohol, Quantitative < 10 02/06/17 10:14: Salicylates < 1 L, Acetaminophen < 10.0 L 02/06/17 10:14: Sodium 138, Potassium 4.2, Chloride 103, Carbon Dioxide 27, Anion Gap 12, BUN 14, Creatinine 0.5, Est GFR ( Amer) > 60, Est GFR (Non- Af Amer) > 60, Random Glucose 83, Calcium 10.2, Total Bilirubin 0.4, AST 20, ALT 29, Alkaline Phosphatase 76, Total Creatine Kinase 99, Total Protein 8.1, Albumin 4.1, Globulin 4.0, Albumin/Globulin Ratio 1.0 L 02/06/17 10:14: WBC 13.9 H, RBC 5.09, Hgb 12.5, Hct 36.7, MCV 72.1 L, MCH 24.6 L , MCHC 34.1, RDW 15.2 H, Plt Count 196, MPV 10.0, Gran % 61.8, Lymph % (Auto) 25.3, [place] % (Auto) 12.2 H, Eos % (Auto) 0.6 L, Baso % (Auto) 0.1, Gran # 8.60 H , Lymph # 3.5 H, [place] # 1.7 H, Eos # 0.1, Baso # 0.02 02/06/17 09:38: Urine Opiates Screen Negative, Urine Methadone Screen Negative, Ur Barbiturates Screen Negative, Ur Phencyclidine Scrn Negative, Ur Amphetamines Screen Negative, U Benzodiazepines Scrn Negative, U Oth Cocaine Metabols Negative, U Cannabinoids Screen Negative Vital Signs Temp Pulse Resp BP Pulse Ox 02/08/17 08:43 135/86 02/08/17 07:40 97.7 F 88 20 135/86 02/07/17 16:23 94 H 138/82 02/07/17 09:02 131/86 02/07/17 07:36 98.0 F 90 20 131/86 02/06/17 14:05 18 02/06/17 13:58 97.6 F 86 18 145/84 02/06/17 12:23 97 H 15 146/72 97 02/06/17 09:22 98.2 F 88 15 138/81 Temp Pulse Resp BP Pulse Ox 97.8 F 89 17 110/62 97 02/09/17 06:36 02/09/17 06:36 02/09/17 06:36 02/09/17 08:39 02/06/17 12:23 Laboratory Results - last 24 hr 02/10/17 08:00 Valproic Acid 16 L Temp Pulse Resp BP Pulse Ox 98.2 F 81 20 121/72 97 02/11/17 07:25 02/11/17 07:25 02/11/17 07:25 02/11/17 08:46 02/06/17 12:23 DSM 5 Symptoms Update: shortly patient is 61 years old -[place] female, long debilitating history of mental illness, schizophrenia spectrum disorder, multiple admissions to the psychiatric inpatient unit through her life, patient was transferred from the skilled nursing for evaluation of agitated bizarre, psychotic behavior, patient broke the door, patient needs further evaluation and stabilization, medications titration. Patient was seen today, patient presented to have acceptable personal hygiene, much calmer, less paranoid, no behavioral issues, NH transfer, SW will work on DC planning. Patient tolerated her medications well, no side effects observed or reported, aims 0, no EPS. Impression: Residual schizophrenia, acute exacerbation. Medication Change: Yes (depakote increased, riserpdal increased) Medical Record Reviewed: Yes Consults ordered or reviewed: medical consultation appreciated, WBC cells elevated most likely due to upper resptory tract infection. Mental Status Examination - Cognitive Function Orientation: Person, Place Memory: Impaired (chronic) Attention: Poor (some imrpovement) Concentration: Poor (some imrpovement) Association: Loose (some imrpovement) Fund of Knowledge: Poor (some imrpovement) - Mood Mood: Neutral - Affect Affect: Other (inappropriately smiling) - Formal Thought Process Formal Thought Process: Delusions (some imrpovement), Paranoia (some imrpovement ), Loosening of associations (some imrpovement), Circumstantial (some imrpovement) - Suicidal Ideation Suicidal Ideation: No - Homicidal Ideation Homicidal Ideation: No Goal/Treatment Plan - Goal/Treatment Plan Need for Continued Stay: Remain at risks for inpatient hospitalization, Severe depression anxiety, Discharge may exacerbated symptoms, Severe functional impairment Progress Toward Problem(s) and Goals/Treatment Plan: milieu, structure, supportive therapy Divalproex 1000 mg at the nighttime and 500mg po am for mood stabilization depakote level was low 16 on February 10 will check depakote level tomorrow February 12 Levothyroxine [Synthroid] 75 mcg PO DAILY will be resumed Sennosides [Senna Lax] 1 tab PO BID resumed amLODIPine [Norvasc] 10 mg PO DAILY resumed Risperdal 2 mg at the morning time and 2 mg at the nighttime for psychotic symptoms and mood stabilization Medical team evaluation Collateral information obtained from the family appreciated bottling room worker evaluation we'll monitor patient closely Estimated Date of D/C: 02/14/17 (we'll monitor closely)
[2017-02-13] MEDS: Divalproex 250 mg ER (ONCE DAILY formulation) PO SCH (21:48)
[2017-02-14] MEDS: Levothyroxine 75 MCG TAB PO SCH (06:41)
[2017-02-14] MEDS: Divalproex 500 mg ER (ONCE DAILY formulation) PO SCH (08:03)
[2017-02-14] MEDS: Docusate-Senna 50 mg-8.6 mg Tab PO SCH ×2 (08:05→17:59)
--- NOTE | 2017-02-14 14:55 | PCM.PYCHPN ---
Psychiatric Progress Note - Psychiatric Progress Note Patient seen today, length of contact: 30 minutes Patient Chief Complaint: "I am much better" Problems Identified/Issues Discussed: Suicide/ homicide prevention, past psychiatric h/o, current psychiatric symptoms , medical problems, risk/benefits and alternatives of medications, medications compliance, coping strategies, substance abuse h/o, relapse prevention, importance of follow up with psychiatrist and therapist, discharge plan. Medical Problems: dyslipidemia, obesity, hypothyroidism, URI now Diagnostic Results: 02/08/17 10:23 02/06/17 10:14 Lab Results 02/08/17 10:23: WBC 9.0 D, RBC 5.05, Hgb 12.2, Hct 36.7, MCV 72.7 L, MCH 24.2 L , MCHC 33.2, RDW 15.3 H, Plt Count 185, MPV 9.9 02/07/17 08:30: RPR Nonreactive 02/07/17 08:30: Valproic Acid 22 L 02/07/17 08:30: Fasting Glucose 90, Triglycerides 66, Cholesterol 205 H, LDL Cholesterol Direct 92, HDL Cholesterol 72 H 02/07/17 08:30: Free T4 1.12, TSH 3rd Generation 3.01 02/06/17 10:30: Urine Color Yellow, Urine Appearance Sl cloudy, Urine pH 7.5, Ur Specific [place] 1.020, Urine Protein 30 H, Urine Glucose (UA) Negative, Urine Ketones Trace H, Urine Blood Negative, Urine Nitrate Negative, Urine Bilirubin Negative, Urine Urobilinogen 1.0 H, Ur Leukocyte Esterase Small H, Urine RBC 0 - 2, Urine WBC 1 - 3, Ur Epithelial Cells 6 - 8, Urine Bacteria Few , Hyaline Casts 2 - 5 02/06/17 10:14: Alcohol, Quantitative < 10 02/06/17 10:14: Salicylates < 1 L, Acetaminophen < 10.0 L 02/06/17 10:14: Sodium 138, Potassium 4.2, Chloride 103, Carbon Dioxide 27, Anion Gap 12, BUN 14, Creatinine 0.5, Est GFR ( Amer) > 60, Est GFR (Non- Af Amer) > 60, Random Glucose 83, Calcium 10.2, Total Bilirubin 0.4, AST 20, ALT 29, Alkaline Phosphatase 76, Total Creatine Kinase 99, Total Protein 8.1, Albumin 4.1, Globulin 4.0, Albumin/Globulin Ratio 1.0 L 02/06/17 10:14: WBC 13.9 H, RBC 5.09, Hgb 12.5, Hct 36.7, MCV 72.1 L, MCH 24.6 L , MCHC 34.1, RDW 15.2 H, Plt Count 196, MPV 10.0, Gran % 61.8, Lymph % (Auto) 25.3, [place] % (Auto) 12.2 H, Eos % (Auto) 0.6 L, Baso % (Auto) 0.1, Gran # 8.60 H , Lymph # 3.5 H, [place] # 1.7 H, Eos # 0.1, Baso # 0.02 02/06/17 09:38: Urine Opiates Screen Negative, Urine Methadone Screen Negative, Ur Barbiturates Screen Negative, Ur Phencyclidine Scrn Negative, Ur Amphetamines Screen Negative, U Benzodiazepines Scrn Negative, U Oth Cocaine Metabols Negative, U Cannabinoids Screen Negative Vital Signs Temp Pulse Resp BP Pulse Ox 02/08/17 08:43 135/86 02/08/17 07:40 97.7 F 88 20 135/86 02/07/17 16:23 94 H 138/82 02/07/17 09:02 131/86 02/07/17 07:36 98.0 F 90 20 131/86 02/06/17 14:05 18 02/06/17 13:58 97.6 F 86 18 145/84 02/06/17 12:23 97 H 15 146/72 97 02/06/17 09:22 98.2 F 88 15 138/81 Temp Pulse Resp BP Pulse Ox 97.8 F 89 17 110/62 97 02/09/17 06:36 02/09/17 06:36 02/09/17 06:36 02/09/17 08:39 02/06/17 12:23 Laboratory Results - last 24 hr 02/10/17 08:00 Valproic Acid 16 L Temp Pulse Resp BP Pulse Ox 98.2 F 81 20 121/72 97 02/11/17 07:25 02/11/17 07:25 02/11/17 07:25 02/11/17 08:46 02/06/17 12:23 Laboratory Results - last 72 hr 02/13/17 07:00 Valproic Acid 55 DSM 5 Symptoms Update: shortly patient is 61 years old -[place] female, long debilitating history of mental illness, schizophrenia spectrum disorder, multiple admissions to the psychiatric inpatient unit through her life, patient was transferred from the custodial for evaluation of agitated bizarre, psychotic behavior, patient broke the door, patient needs further evaluation and stabilization, medications titration. Patient was seen today, patient presented to have acceptable personal hygiene, much calmer, less paranoid, no behavioral issues, NH transfer, SW will work on DC planning. pt still has inappropriate affect, was observed laughing out loud with nobody around, but overall no aggression/no agitation, pt will be scheduled for d/c on Friday. Patient tolerated her medications well, no side effects observed or reported, aims 0, no EPS. Impression: Residual schizophrenia, acute exacerbation. Medication Change: No Medical Record Reviewed: Yes Consults ordered or reviewed: medical consultation appreciated, WBC cells elevated most likely due to upper resptory tract infection. Mental Status Examination - Cognitive Function Orientation: Person, Place Memory: Impaired (chronic) Attention: Poor (some imrpovement) Concentration: Poor (some imrpovement) Association: Loose (some imrpovement) Fund of Knowledge: Poor (some imrpovement) - Mood Mood: Neutral - Affect Affect: Other (inappropriately smiling) - Formal Thought Process Formal Thought Process: Delusions (some imrpovement), Paranoia (some imrpovement ), Loosening of associations (some imrpovement) - Suicidal Ideation Suicidal Ideation: No - Homicidal Ideation Homicidal Ideation: No Goal/Treatment Plan - Goal/Treatment Plan Need for Continued Stay: Remain at risks for inpatient hospitalization, Severe depression anxiety, Discharge may exacerbated symptoms, Severe functional impairment Progress Toward Problem(s) and Goals/Treatment Plan: milieu, structure, supportive therapy Divalproex 1000 mg at the nighttime and 500mg po am for mood stabilization depakote level was low 16 on February 10 will check depakote level February 13 was 55 Levothyroxine [Synthroid] 75 mcg PO DAILY will be resumed Sennosides [Senna Lax] 1 tab PO BID resumed amLODIPine [Norvasc] 10 mg PO DAILY resumed Risperdal 2 mg at the morning time and 2 mg at the nighttime for psychotic symptoms and mood stabilization Medical team evaluation Collateral information obtained from the 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
[2017-02-14] MEDS: Divalproex 250 mg ER (ONCE DAILY formulation) PO SCH (21:40)
--- NOTE | 2017-02-15 08:56 | PCM.PYCHPN ---
Psychiatric Progress Note - Psychiatric Progress Note Patient seen today, length of contact: 25 minutes Patient Chief Complaint: "all right" Problems Identified/Issues Discussed: I reviewed assessment and recent notes. Patient was interviewed at bedside. She is calm during my introduction. Appears internally preoccupied and a little guarded. Nonetheless she is superficially cooperative with my questioning. She denies having any new concerns and has been tolerating her medications. Reports that her mood is "alright". Affect is flat. Patient denies having hallucinations or paranoid thoughts. She does not appear to be responding to internal stimuli during our interview Staff notes indicate the patient has been cooperative and compliant with medications. She is seclusive and withdrawn and at times observed to be laughing by herself. There were no behavioral issues overnight Diagnostic Results: Residual schizophrenia, acute exacerbation. Medication Change: No Medical Record Reviewed: Yes (reports, notes, vitals, labs) Mental Status Examination - Cognitive Function Orientation: Person, Place Memory: Impaired (chronic) Attention: Poor (some imrpovement) Concentration: Poor (some imrpovement) Association: Loose (some imrpovement) Fund of Knowledge: Poor (some imrpovement) - Mood Mood: Neutral ("all right") - Affect Affect: Flat, Other (inappropriately smiling) - Formal Thought Process Formal Thought Process: Delusions (some imrpovement), Paranoia (some imrpovement ), Loosening of associations (some imrpovement) - Suicidal Ideation Suicidal Ideation: No - Homicidal Ideation Homicidal Ideation: No Goal/Treatment Plan - Goal/Treatment Plan Need for Continued Stay: Remain at risks for inpatient hospitalization, Severe depression anxiety, Discharge may exacerbated symptoms, Severe functional impairment Progress Toward Problem(s) and Goals/Treatment Plan: * c/w current tx and plan * No new weekend labs * Vitals reviewed and noted below: Selected Entries 02/14/17 02/14/17 02/14/17 07:44 08:04 16:25 Temperature 97.5 F L Pulse Rate 72 90 Respiratory 20 Rate Blood Pressure 123/80 123/80 140/84 Estimated Date of D/C: 02/17/17 (we'll monitor closely)
[2017-02-15] MEDS: Docusate-Senna 50 mg-8.6 mg Tab PO SCH ×2 (09:35→16:42)
[2017-02-15] MEDS: Divalproex 500 mg ER (ONCE DAILY formulation) PO SCH (09:35)
[2017-02-15] MEDS: Levothyroxine 75 MCG TAB PO SCH (09:35)
[2017-02-15] MEDS: Divalproex 250 mg ER (ONCE DAILY formulation) PO SCH (21:58)
--- NOTE | 2017-02-16 08:46 | PCM.PYCHPN ---
Psychiatric Progress Note - Psychiatric Progress Note Patient seen today, length of contact: 25 minutes Patient Chief Complaint: "all right" Problems Identified/Issues Discussed: I reviewed recent notes and patient was interviewed at bedside. She still appears internally preoccupied and a little guarded. Nonetheless she is superficially cooperative with my questioning. She denies having any new concerns and has been tolerating her medications. Continues to report that her mood is "all right". Affect is flat. Patient denies having hallucinations or paranoid thoughts. She does not appear to be responding to internal stimuli during our interview however remains oddly, sometimes bizarrely related in the community. Staff have observed patient laughing to herself despite verbal redirection. Patient remains cooperative and compliant with medication with no major behavioral issues over the weekend Diagnostic Results: Residual schizophrenia, acute exacerbation. Medication Change: No Medical Record Reviewed: Yes (reports, notes, vitals, labs) Mental Status Examination - Cognitive Function Orientation: Person, Place Memory: Impaired (chronic) Attention: Poor (some imrpovement) Concentration: Poor (some imrpovement) Association: Loose (some imrpovement) Fund of Knowledge: Poor (some imrpovement) - Mood Mood: Neutral ("all right") - Affect Affect: Flat, Other (inappropriately smiling) - Speech Speech: Soft - Formal Thought Process Formal Thought Process: Delusions (some imrpovement), Paranoia (some imrpovement ), Loosening of associations (some imrpovement) - Suicidal Ideation Suicidal Ideation: No - Homicidal Ideation Homicidal Ideation: No Goal/Treatment Plan - Goal/Treatment Plan Need for Continued Stay: Remain at risks for inpatient hospitalization, Severe depression anxiety, Discharge may exacerbated symptoms, Severe functional impairment Progress Toward Problem(s) and Goals/Treatment Plan: * c/w current tx and plan * No new weekend labs * Vitals reviewed and noted below: Selected Entries 02/16/17 07:51 Temperature 98.1 F Pulse Rate 82 Respiratory 20 Rate Blood Pressure 129/83 Estimated Date of D/C: 02/17/17 (we'll monitor closely)
[2017-02-16] MEDS: Levothyroxine 75 MCG TAB PO SCH (09:08)
[2017-02-16] MEDS: Divalproex 500 mg ER (ONCE DAILY formulation) PO SCH (09:08)
[2017-02-16] MEDS: Docusate-Senna 50 mg-8.6 mg Tab PO SCH ×2 (09:09→17:28)
[2017-02-16] MEDS: Divalproex 250 mg ER (ONCE DAILY formulation) PO SCH (21:45)
[2017-02-17 07:53] VITALS: BP 111/74; PULSE 72; TEMP 97.6
[2017-02-17] MEDS: Levothyroxine 75 MCG TAB PO SCH (08:51)
[2017-02-17] MEDS: Docusate-Senna 50 mg-8.6 mg Tab PO SCH (08:51)
[2017-02-17] MEDS: Divalproex 500 mg ER (ONCE DAILY formulation) PO SCH (08:52)
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
== END 2017-02-17 13:54 | DRG 430 ==
LOC: ED 09:12 → MERGE 11:48 → ERH 11:48 → PSYC 13:30
PROVIDERS: ADMIT Psychiatry & Neurology Psychiatry; ATTEND Psychiatry & Neurology Psychiatry
DX: F20.5 Residual schizophrenia (principal); F22 Delusional disorders; I10 Essential (primary) hypertension; E03.9 Hypothyroidism, unspecified; E66.9 Obesity, unspecified; E78.5 Hyperlipidemia, unspecified; J06.9 Acute upper respiratory infection, unspecified; K21.9 Gastro-esophageal reflux disease without esophagitis; Z79.899 Other long term (current) drug therapy; Z87.891 Personal history of nicotine dependence; R40.2412 Glasgow coma scale score 13-15, at arrival to emergency department; G47.00 Insomnia, unspecified